=== PATIENT | female | born 1965 | race Caucasian/White ===

== ENCOUNTER 2016-06-09 09:18 | Outpatient (CLI) | payer OTHER ==
--- NOTE | 2016-06-09 10:53 | DIAGNOSTIC IMAGING REPORT ---
PROCEDURE: CT ABD/PELVIS WITH CONTRAST CLINICAL INDICATION: Longstanding right-sided abdominal pain. Initial encounter. TECHNIQUE: 125 ml of Isovue 300 were injected intravenously and axial images were obtained of the entire abdomen and pelvis with sagittal and coronal reformations. COMPARISON: Pelvic ultrasound 12/17/2014 FINDINGS: ABDOMEN: Calcified left lower lobe granuloma. Normal heart size. Normal liver size with diffuse steatosis. Dilated common bile duct (8.5 mm) and pancreatic duct (4 mm) without evidence of a distal obstruction, mass or inflammatory changes. Spleen, adrenal glands and the kidneys are normal. Normal abdominal aorta. Nonspecific bowel gas pattern. PELVIS: Normal appendix. Bilateral tubal ligation clips. Uterus, adnexa and bladder are unremarkable. No pelvic mass, inflammatory changes or free fluid. Bones are unremarkable. IMPRESSION: 1. Hepatic steatosis 2. Dilated common bile and pancreatic ducts without evidence of obstruction, mass or inflammatory change. Correlate clinically. 3. Bilateral tubal ligation clips All CT scans at this facility use dose modulation, iterative reconstruction, and/or weight-based dosing when appropriate to reduce radiation dose to as low as reasonably achievable.
[2016-06-30] MEDS ORDERED: NORCO1 TA2 PO (12:16)
[2016-06-30] MEDS ORDERED: XANAX0.5 MG PO (12:17)
[2016-06-30] MEDS ORDERED: ALEVE220 MG PO (12:18)
[2016-06-30] MEDS ORDERED: BUSPIRONE HCL5 MG PO (12:18)
[2016-06-30] MEDS ORDERED: ACETAMINOPHEN325 MG PO (12:19)
== END 2016-06-09 23:00 ==
LOC: CT SRH 09:18
DX: K76.0 Fatty (change of) liver, not elsewhere classified (principal); K83.8 Other specified diseases of biliary tract; K86.89 Other specified diseases of pancreas

== ENCOUNTER 2016-06-13 09:05 | Outpatient (CLI) | payer OTHER ==
--- NOTE | 2016-06-13 10:35 | DIAGNOSTIC IMAGING REPORT ---
PROCEDURE: US ABDOMEN ULTRASOUND-COMPLETE INDICATION: RIGHT SIDED ABD PAIN TECHNIQUE: Castillo scale and color Doppler sonographic images of the abdomen were obtained without comparison. COMPARISON: None. FINDINGS: The liver is dense and echogenic. No mass or intrahepatic biliary dilatation. The gallbladder is normal without stones or sludge. The wall is normal thickness measuring 1.5 mm No pericholecystic fluid or Collins sign. The extrahepatic common duct is enlarged measuring 11.9 mm The pancreas is normal with 2.7 mm ductal dilatation The abdominal aorta is normal in its course and caliber. The retrohepatic inferior vena cava is patent. There is appropriate hepatopetal flow in the portal vein. The right kidney measures 11 cm in length. The left kidney measures 10.1 cm in length. Both kidneys demonstrate normal morphology and cortical thickness without hydronephrosis, cyst, solid mass, or shadowing calculus. Color Doppler imaging demonstrates normal blood flow in each kidney. The spleen is normal in size measuring 8.4 cm in length. There is no perihepatic or perisplenic ascites. IMPRESSION: 1. Fatty liver. 2. Dilated common bile duct and pancreatic duct without evidence of obstruction.
[2016-06-30] MEDS ORDERED: NORCO1 TA2 PO (12:16)
[2016-06-30] MEDS ORDERED: XANAX0.5 MG PO (12:17)
[2016-06-30] MEDS ORDERED: ALEVE220 MG PO (12:18)
[2016-06-30] MEDS ORDERED: BUSPIRONE HCL5 MG PO (12:18)
[2016-06-30] MEDS ORDERED: ACETAMINOPHEN325 MG PO (12:19)
== END 2016-06-13 23:00 ==
LOC: US SRH 09:05
DX: R10.9 Unspecified abdominal pain (principal); K76.0 Fatty (change of) liver, not elsewhere classified; K83.8 Other specified diseases of biliary tract

== ENCOUNTER 2016-07-03 09:31 | Outpatient (CLI) | payer OTHER ==
[~2016-07-03 09:31] MED LIST: ACETAMINOPHEN325 MG PO; ALEVE220 MG PO; BUSPIRONE HCL5 MG PO; NORCO1 TA2 PO; XANAX0.5 MG PO
--- NOTE | 2016-07-03 15:37 | DIAGNOSTIC IMAGING REPORT ---
PROCEDURE: NM HEPATOBILIARY IMAGING INDICATION: ABD PAIN TECHNIQUE: 8 mCi of technetium-99m Choletec was injected intravenously and images were acquired over a one hour time interval. Following a fatty milk meal , gallbladder ejection fraction was calculated. COMPARISON: Abdominal ultrasound 06/13/2016. FINDINGS: Homogeneous radiotracer uptake throughout the liver. Gallbladder is first visualized at 28 minutes. Small bowel activity is seen at 24 minutes. The gallbladder ejection fraction was 63% at 15 minutes, 76% at 30 minutes and 89% at 45 minutes. IMPRESSION: 1. Normal hepatobiliary scan and ejection fraction.
== END 2016-07-03 23:00 ==
LOC: NM SRH 09:31
DX: R10.9 Unspecified abdominal pain (principal)

== ENCOUNTER 2016-07-05 10:46 | Outpatient (CLI) | payer OTHER ==
--- NOTE | 2016-07-05 14:18 | DIAGNOSTIC IMAGING REPORT ---
PROCEDURE: XR UPPER GI WITH SBFT INDICATION: Abdominal pain. TECHNIQUE: Double contrast study. Fluoroscopy time, 2.5 minutes; 1682.19 mGy. 89 fluoroscopic images (including cinefluoroscopy). COMPARISON: Comparison is made to nuclear medicine biliary scan (07/03/2016), abdominal ultrasound (06/13/2016), CT abdomen and pelvis (06/09/2016). FINDINGS: Preliminary abdominal radiograph demonstrates surgical tubal ligation clips overlying the pelvis. Bowel pattern is normal. Mild to moderate gastroesophageal reflux. Esophagus is otherwise normal. Stomach and duodenum are normal. No evidence of ulcer. Small bowel pattern is normal with normal transit time (45 minutes). Normal terminal ileum and appendix. IMPRESSION: 1. Mild to moderate gastroesophageal reflux. 2. Otherwise negative upper GI and small bowel series. 3. Findings discussed with the patient and called to Dr. Calles.
== END 2016-07-05 23:00 ==
LOC: XR SRH 10:46
DX: K21.9 Gastro-esophageal reflux disease without esophagitis (principal)